=== PATIENT | female | born 1990 | race Caucasian/White ===

== ENCOUNTER → 2025-07-01 | Outpatient (CLI) | payer OTHER, SELFPAY ==
--- NOTE | 2025-07-01 14:23 | XR_ITS ---
Examination: Knee, right, 3 views Technique: Knee AP, lateral, oblique 3 views Date and time of exam: July 01 2025, 1433 hours INDICATIONS: Right knee pain and burning sensation swelling after injury yesterday. FINDINGS: No fracture or dislocation. Mild narrowing medial joint space Small knee effusion IMPRESSION: No fracture or dislocation
== END | disposition home or self-care (01) ==
PROVIDERS: PCP Family Medicine; Referring Provider Nurse Practitioner Family; Visit Provider Nurse Practitioner Family
DX: S83.91XA Sprain of unspecified site of right knee, initial encounter (principal); X58.XXXA Exposure to other specified factors, initial encounter
CPT/HCPCS: 73562